=== PATIENT | female | born 1975 | race Caucasian/White ===

== ENCOUNTER → 2017-06-30 | Outpatient (CLI) | payer BC ==
--- NOTE | 2017-06-30 12:00 | MM ---
Reason for exam: additional evaluation requested from prior study. Last mammogram was performed 1 year and 4 months ago. History: Benign US breast aspiration single LT of the left breast, February 01, 2014. Benign US breast aspiration single RT of the right breast, February 01, 2014. Benign US biopsy breast VAD LT of the left breast, February 01, 2014. Benign cyst aspiration of the left breast, 1994. Physical Findings: Nurse did not find any significant physical abnormalities on exam. MG 3D Diag Mammo W/Cad FIGUEROA Bilateral CC and MLO view(s) were taken. CV and spot compression CC view(s) were taken of the left breast. Prior study comparison: February 25, 2016, bilateral MG screening mammo w CAD. February 05, 2015, bilateral MG diagnostic mammo w CAD FIGUEROA. January 13, 2014, bilateral MG screening mammo w CAD. Previous mammotome biopsy in the left breast x 2. There is chronic nodularity in the left breast. Nodular asymmetry medial and posterior left breast incompletely disperses on 3D. These results were verbally communicated with the patient and result sheet given to the patient on 06/30/17. ASSESSMENT: Incomplete: need additional imaging evaluation, BI-RAD 0 RECOMMENDATION: Ultrasound of both breasts.
--- NOTE | 2017-06-30 12:05 | USB ---
Reason for exam: additional evaluation requested from abnormal screening. History: Benign US breast aspiration single LT of the left breast, February 01, 2014. Benign US breast aspiration single RT of the right breast, February 01, 2014. Benign US biopsy breast VAD LT of the left breast, February 01, 2014. Benign cyst aspiration of the left breast, 1994. US Breast Limited BILAT Right breast ultrasound includes all four quadrants, the retroareolar region and axilla. Finding demonstrates a 1.0 x 0.7 x 0.2cm oval, mixed lesion at 12 o'clock for which a 6 month follow up ultrasound is recommended, a 0.4 x 0.5 x 0.2cm oval lesion too small to characterize at 12 o'clock, a 0.3 x 0.4 x 0.2cm oval, cystic lesion at 9 o'clock and a 0.3 x 0.4 x 0.2cm oval lesion too small to characterize at 11 o'clock (larger of 2 adjacent lesions). Left breast ultrasound demonstrates a 0.3 x 0.2 x 0.1cm oval, mixed calcification at 8 o'clock, ducts at 9 o'clock, a 0.5 x 0.4 x 0.3cm oval, cystic lesion at 10 o'clock, a 0.5 x 0.5 x 0.3cm oval, cyst clusters at 10 o'clock and a 0.5 x 0.5 x 0.4cm oval, cystic lesion at 10 o'clock. One on these may correspond to the mammographic finding. A 6 month follow up mammogram recommended. These results were verbally communicated with the patient and result sheet given to the patient on 06/30/17. ASSESSMENT: Probably benign, BI-RAD 3 RECOMMENDATION: Follow-up diagnostic mammogram of the left breast in 6 months. Ultrasound of the right breast in 6 months. (12 o'clock)
== END | disposition home or self-care (01) ==
LOC: RADMAMWWP 09:37
PROVIDERS: ATTEND Obstetrics & Gynecology
DX: R92.8 Other abnormal and inconclusive findings on diagnostic imaging of breast (principal)
CPT/HCPCS: 77066; 76642; G0279

== ENCOUNTER → 2019-04-05 | Outpatient (CLI) | payer BC ==
--- NOTE | 2019-04-06 14:06 | MM ---
Reason for exam: additional evaluation requested from prior study. Last mammogram was performed 1 year and 9 months ago. History: Benign US breast aspiration single LT of the left breast, February 01, 2014. Benign US breast aspiration single RT of the right breast, February 01, 2014. Benign US biopsy breast VAD LT of the left breast, February 01, 2014. Benign cyst aspiration of the left breast, 1994. Physical Findings: Nurse did not find any significant physical abnormalities on exam. MG Diagnostic Mammo w CAD FIGUEROA Bilateral CC and MLO view(s) were taken. Prior study comparison: June 30, 2017, bilateral MG 3d diag mammo w/cad FIGUEROA. March 13, 2016, right breast MG work up mamm w CAD RT. The breast tissue is extremely dense which could obscure a lesion on mammography. Finding: There are indeterminate calcifications in the inner quadrant, central position of the right breast. Previous mammotome biopsy in the left breast. These results were verbally communicated with the patient and result sheet given to the patient on 04/05/19. ASSESSMENT: Suspicious, BI-RAD 4 RECOMMENDATION: Ultrasound and stereotactic core biopsy of the right breast. Called Dr. Del Valle's office with mammographic findings and has scheduled an appointment for the patient for 04/18/19 at 9:[address] Fitzgerald. Biopsy scheduled for 04/28/18 at 10:20. PRELIMINARY REPORT CALLED AND FAXED TO DR. FITZGERALD ON 04/05/19.
--- NOTE | 2019-04-06 14:07 | USB ---
Reason for exam: additional evaluation requested from abnormal screening. History: Benign US breast aspiration single LT of the left breast, February 01, 2014. Benign US breast aspiration single RT of the right breast, February 01, 2014. Benign US biopsy breast VAD LT of the left breast, February 01, 2014. Benign cyst aspiration of the left breast, 1994. US Breast RT Right complete breast ultrasound includes all four quadrants, the retroareolar region and axilla. Finding demonstrates a 11 x 3 x 11mm cystic cluster at 12 o'clock, a 4 x 2 x 5mm cystic lesion at 9 o'clock and a 2 x 1 x 4mm cystic lesion too small to characterize at 11 o'clock. These results were verbally communicated with the patient and result sheet given to the patient on 04/05/19. ASSESSMENT: Highly suggestive of malignancy, BI-RAD 5 RECOMMENDATION: Stereotactic core biopsy of the right breast. Called Dr. Del Valle's office with mammographic findings and has scheduled an appointment for the patient for 04/18/19 at 9:[address] Fitzgerald. Biopsy scheduled for 04/28/18 at 10:20. PRELIMINARY REPORT CALLED AND FAXED TO DR. FITZGERALD ON 04/05/19.
== END | disposition home or self-care (01) ==
LOC: RADMAMWWP 12:50
PROVIDERS: ATTEND Obstetrics & Gynecology
DX: R92.8 Other abnormal and inconclusive findings on diagnostic imaging of breast (principal)
CPT/HCPCS: 77066

== ENCOUNTER → 2019-04-21 | Day surgery (SDC) | payer BC ==
[2019-04-21 13:16] VITALS: RESP 16; TEMP 97.9
[2019-04-21 14:45] VITALS: BP 125/83; PULSE 83
--- NOTE | 2019-04-21 15:21 | MM ---
EXAMINATION TYPE: MG stereo VAD BX RT DATE OF EXAM: 04/21/2019 COMPARISON: Mammogram 04/05/2019 CLINICAL HISTORY: Abnormal mammogram TECHNIQUE: Stereotactic guided core biopsy of a breast. FINDINGS: The procedure of stereotactic guided core biopsy was explained to the patient. Benefits, alternatives, and risks were discussed. An informed consent was then obtained. [facility]. Shortness pathway was mediolateral approach. I performed the localization. A vacuum assisted biopsy gun was used to obtain multiple core samples following local anesthesia with lidocaine. The patient tolerated the procedure well without any immediate complication. The patient was kept in the radiology department for short stay after the procedure and then discharged home in stable condition. Targeted calcifications are identified in specimen mammogram. Post biopsy digital 2 view mammogram shows the clip to appear in satisfactory position relative to the targeted area of concern on the preprocedure images. IMPRESSION: SUCCESSFUL, UNCOMPLICATED STEREOTACTIC GUIDED CORE BIOPSY OF AREA OF CONCERN IN THE right BREAST, FULL PATHOLOGY RESULTS TO FOLLOW. 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 Intraductal mineralizations in a background of fibrocystic spectrum changes. Recommendation Surgical consult of the right breast. KATHE
== END ==
LOC: RADMAMWWP 12:57
PROVIDERS: ATTEND Surgery
DX: D24.1 Benign neoplasm of right breast (principal); R92.8 Other abnormal and inconclusive findings on diagnostic imaging of breast; Q83.8 Other congenital malformations of breast
CPT/HCPCS: 88305; 19081; A4648; J2001

== ENCOUNTER 2019-05-10 11:02 | Day surgery (SDC) | payer BC ==
[2019-05-06 15:10] VITALS: BMI 21.8
[~2019-05-10 11:02] MED LIST: DEXAMETHASONE SOD PHOSPHATE 10 MG/ML 1 ML VIAL IV ONE; HEPARIN SODIUM,PORCINE 5,000 UNIT/ML 1 ML VIAL SQ ONE; HYDROmorphone 0.5 MG/0.5 ML SYRINGE IVP PRN; LACTATED RINGERS 1,000 ML IV SCH; LIDOCAINE 1% 20 ML VIAL (10MG/ML) FOR IV START INTRADERMA PRN; MIDAZOLAM 2 MG/2 ML VIAL IV PRN; ONDANSETRON 4 MG/2 ML VIAL IVP ONE; Pre Op ABX Message 1 EACH MISC MISCELLANE ONE; SCOPOLAMINE 1.5MG/72HR PATCH TRANSDERM ONE
[2019-05-10] MEDS ORDERED: ALPRAZolam 0.5 MG TAB PO ONE (11:45)
[2019-05-10] MEDS ORDERED: LIDOCAINE 1% INJ 10MG/ML (20 ML MDV) SQ ONE (12:27)
[2019-05-10] MEDS ORDERED: fentaNYL (PF) 50 MCG/ML 2 ML AMP ONE (13:26)
[2019-05-10] MEDS ORDERED: PROPOFOL 10 MG/ML 20 ML VIAL IV ONE (13:26)
[2019-05-10] MEDS ORDERED: LIDOCAINE 1% INJ 10MG/ML (20 ML MDV) ONE (13:26)
[2019-05-10] MEDS ORDERED: MIDAZOLAM 2 MG/2 ML VIAL ONE (13:26)
[2019-05-10] MEDS ORDERED: SODIUM CHLORIDE 0.9% 100 ML with ceFAZolin 2,000 MG IV ONE ×2 (13:32)
[2019-05-10] MEDS ORDERED: BUPIVACAIN-EPI 0.25%-1:200,000 30 ML VIAL SQ ONE (13:48)
--- NOTE | 2019-05-10 14:15 | P.OP ---
Date of Procedure: 05/10/19 Preoperative Diagnosis: Right breast dysplasia, intraductal papilloma Postoperative Diagnosis: Right breast dysplasia, intraductal papilloma Procedure(s) Performed: Right breast lumpectomy with needle localization Anesthesia: JUAN FRANCISCO Surgeon: Hortensia Phelps Pathology: other (Right breast mass) Condition: stable Disposition: same day Indications for Procedure: This is a 43-year-old female that initially presented to my office secondary to an abnormal mammogram. Further imaging was performed with ultrasound that was read as a BIRADS 5 that was suspicious for a lesion of the right breast. Stereotactic core biopsy was performed of this lesion and pathology revealed intraductal papilloma with dysplasia that was bordering on DCIS. Secondary to this, plan is for lumpectomy of the right breast with needle localization. The patient was informed of the risks, benefits and alternatives to the procedure and did provide consent prior to attending the operating suite. Operative Findings: Right breast lesion with radiologic confirmation of clip in place Description of Procedure: The patient was brought to the operating suite and placed in supine position on the operating table. Sedation was provided by anesthesia and LMA was placed. The patient was then prepped and draped in regular fashion with right breast exposed. Curvilinear incision was made on the medial aspect of the right breast just medial to the needle insertion site. Dissection was carried towards the breast tissue and the needle was grasped. Dissection was carried in a circular fashion around the needle towards the tip of the needle. Cautery was used to completely excise the lesion. Hemostasis was maintained with cautery throughout the procedure. The specimen was then sent for radiology to evaluation. Clip was noted to be in place. The wound was then closed with 3-0 Vicryl suture and 4-0 subcuticular Vicryl suture. The patient was awakened in the operating suite and taken postanesthesia care unit in stable condition.
--- NOTE | 2019-05-10 14:16 | MM ---
EXAMINATION TYPE: MG pre op needle loc RT, MG surgical specimen RT DATE OF EXAM: 05/10/2019 COMPARISON: Mammographic guided right breast biopsy dated 04/21/2019 CLINICAL HISTORY: Mammographic guided needle localization requested for intraductal papilloma of the right breast and flat epithelial dysplasia bordering on low-grade DCIS. TECHNIQUE: Needle localization with wire placement and surgical excision of area of concern in the right breast. FINDINGS: The procedure of needle localization with wire placement and than surgical excision was explained to the patient. Benefits, alternatives, and risks were discussed. An informed consent was then obtained. Preprocedural timeout was performed. The shortest pathway for procedure was chosen. Shortest pathway was medial to lateral approach. The overlying skin was prepped and draped in usual sterile fashion. 10 cc of 1% lidocaine was used as anesthetic into the skin and subcutaneous tissue up to the level of area of concern. A 5 cm needle was used. It was placed via a medial to lateral approach under mammographic guidance. Subsequent 90 degrees mammogram show the needle to be in satisfactory position relative to the targeted area. At this point, wire was placed and the needle was withdrawn. The wire was fixed to patient's skin. Images were marked for surgeon. The patient tolerated the procedure well without any immediate complication. The patient was kept in the radiology department for short stay after the procedure and then taken to surgery for surgical excision. Targeted biopsy marker and wire are identified in specimen mammogram. The patient was kept in hospital for short stay after the procedure and then discharged home in stable condition. IMPRESSION: Successful, uncomplicated needle localization with wire placement and surgical excision of targeted biopsy marker denoting the intraductal papilloma of the right breast and flat epithelial dysplasia bordering on low- grade DCIS in the right breast, full pathology results to follow. Pathology Results: Benign RIGHT BREAST, NEEDLE LOCALIZATION EXCISION: Benign breast with fibrocystic changes including fibroadenoma/fibroadenomatoid hyperplasia and previous biopsy site. No residual papilloma or atypia is identified. Recommendation Follow up mammogram of the right breast in 6 months. CONCEPCIÓND
[2019-05-10 14:26] VITALS: TEMP 97.6
[2019-05-10 15:18] VITALS: RESP 18
[2019-05-10 15:49] VITALS: BP 116/70; PULSE 88
== END 2019-05-10 15:49 | disposition home or self-care (01) ==
LOC: OR 11:02
PROVIDERS: ATTEND Surgery
DX: D24.1 Benign neoplasm of right breast (principal); N60.11 Diffuse cystic mastopathy of right breast; Z98.890 Other specified postprocedural states; Z87.891 Personal history of nicotine dependence
CPT/HCPCS: 81025; 88307; 76098; 19281; 19125; J2250; J1644; J1100; J2405; J0690; J2001; J3010; J2704

== ENCOUNTER → 2022-05-03 | Outpatient (CLI) | payer BC ==
[2022-05-03 16:42] LABS: Basophils # (A) 0.05 X 10*3/uL (0.00-0.10); Basophils % (A) 0.6 %; Eosinophils # (A) 0.18 X 10*3/uL (0.04-0.35); Eosinophils % (A) 2.3 %; HCT 38.1 % (37.2-46.3); HGB 12.1 g/dL (12.0-15.0); Immature Grans, Automated 0.4 %; Lymphocytes # (A) 1.51 X 10*3/uL (0.90-5.00); Lymphocytes % (A) 19.6 %; MCH 27.9 pg (27.0-32.0); MCHC 31.8 g/dL (32.0-37.0); Mean Platelet Volume 9.6 fL (9.5-12.2); Monocytes # (A) 0.48 X 10*3/uL (0.20-1.00); Monocytes % (A) 6.2 %; NRBC Per 100 WBC 0 /100 WBCS (0.0-0.0); Neutrophils # (A) 5.47 X 10*3/uL (1.80-7.70); Neutrophils % (A) 70.9 %; Platelet Count 315 X 10*3/uL (140-440); RBC 4.33 X 10*6/uL (4.10-5.20); RDW 12.7 % (11.5-14.5); WBC 7.72 X 10*3/uL (4.50-10.00)
[2022-05-03 17:02] LABS: Luteinizing Hormone 58.7 mIU/mL
[2022-05-03 17:14] LABS: ALT 42 U/L (8-44); AST 30 U/L (13-35); African American GFR (CKD) 122.8 (60.0-200.0); Albumin 4.7 g/dL (3.8-4.9); Albumin/Globulin Ratio 2.01 (1.60-3.17); Alkaline Phosphatase 61 U/L (41-126); BUN/Creat Ratio 19.07 Ratio (12.00-20.00); Blood Urea Nitrogen 12.3 mg/dL (9.0-27.0); Calcium 9.7 mg/dL (8.7-10.3); Carbon Dioxide 24.4 mmol/L (20.0-27.5); Chloride 105 mmol/L (96-109); Chol/HDL Ratio 2.67 Ratio; Follicle Stimulating Hormone 41.3 mIU/mL; Globulin 2.3 g/dL (1.6-3.3); Glucose 91 mg/dL (70-110); LDL Cholesterol,Calculated 94.6 mg/dL (0.0-131.0); Potassium 4.2 mmol/L (3.5-5.5); Sodium 141 mmol/L (135-145); Total Protein 7.1 g/dL (6.2-8.2); VLDL Calculation 16.82 mg/dL (5.00-40.00)
== END | disposition home or self-care (01) ==
LOC: LABWHC1 09:27
PROVIDERS: ATTEND Family Medicine
DX: Z00.00 Encounter for general adult medical examination without abnormal findings (principal); R53.83 Other fatigue
CPT/HCPCS: 36415; 80053; 80061; 82306; 82607; 82670; 83001; 83002; 84443; 85025

== ENCOUNTER → 2022-11-11 | Outpatient (CLI) | payer BC ==
--- NOTE | 2022-11-11 15:28 | XR ---
EXAMINATION TYPE: XR KUB DATE OF EXAM: 11/11/2022 Comparison: 01/04/2013 Clinical History: 47-year-old female N23 UNSPECIFIED RENAL COLIC Findings: Nonobstructive bowel gas pattern. Mild stool in the right-sided the abdomen. Multiple pelvic phleboli ths. A couple adjacent nonobstructive left renal calculi measuring 5 mm and 4 mm. Impression: A couple nonobstructing left renal calculi measuring 5 mm and 4 mm. Pelvic phleboliths.
== END | disposition home or self-care (01) ==
LOC: RADXRMAIN 10:40
PROVIDERS: ATTEND Urology
DX: N20.0 Calculus of kidney (principal); N23 Unspecified renal colic
CPT/HCPCS: 74018